=== PATIENT | male | born 1960 | race Caucasian/White ===

== ENCOUNTER 2016-07-28 09:14 | Day surgery (SDC) | payer BC ==
[2016-07-24 15:57] VITALS: BMI 21.1
[~2016-07-28 09:14] MED LIST: LACTATED RINGERS 1,000 ML IV SCH; LIDOCAINE 1% 20 ML VIAL (10MG/ML) FOR IV START INTRADERMA PRN
[2016-07-28 09:44] VITALS: TEMP 97.7
[2016-07-28] MEDS ORDERED: LIDOCAINE 1% 20 ML VIAL (10MG/ML) FOR IV START INTRADERMA ONE (09:50)
[2016-07-28] MEDS ORDERED: PROPOFOL 10 MG/ML 20 ML VIAL IV ONE (09:58)
--- NOTE | 2016-07-28 10:31 | P.PCN ---
Date of Procedure: 07/28/16 Procedure(s) Performed: Procedure: Total colonoscopy. Preoperative diagnosis: Intermittent rectal bleeding. Postoperative diagnosis: Low-grade internal hemorrhoids, not bleeding at the time of the exam, otherwise exam to the cecum within normal limits. Preparation: HalfLytely prep. Sedation: Was provided by anesthesia. Brief clinical history: The patient is a 56-year-old male who is referred for this evaluation because of recent episodes of fresh bleeding per rectum. There is no change in bowel habits or any significant abdominal symptoms or anemia. No family history of colon cancer. This would be his first colonoscopy.. Procedure: With the patient on his left lateral decubitus position and after informed consent and adequate sedation, the perianal area was inspected and it did not show any fissures or fistulas. There were no masses felt on digital rectal examination. The Olympus CFQ 160L video colonoscope was then inserted in the rectum in the usual fashion and advanced to the cecum. The mucosa appeared healthy. No polyps or tumors were seen or any obvious diverticular disease or other pathology. I retroflexed endoscope in the rectum before the endoscope was withdrawn. Low-grade internal hemorrhoids were noted but there was no bleeding. The patient tolerated the procedure well. Plan: Was reassured. Discussed dietary measures and local care for hemorrhoids. He will follow up with you as planned and I recommended repeat exam in 10 years.
[2016-07-28 10:52] VITALS: BP 107/70; PULSE 63; RESP 18
== END 2016-07-28 11:03 | disposition home or self-care (01) ==
LOC: ORWHC2ENDO 09:14
DX: K62.5 Hemorrhage of anus and rectum (principal); K64.8 Other hemorrhoids; J44.9 Chronic obstructive pulmonary disease, unspecified; J45.909 Unspecified asthma, uncomplicated; Z79.899 Other long term (current) drug therapy
CPT/HCPCS: 45378; J2704

== ENCOUNTER 2020-08-21 09:24 | Emergency (ER) | payer BC, OTHER ==
[2020-08-21 09:36] VITALS: BP 150/89; RESP 18; TEMP 97.9
--- NOTE | 2020-08-21 10:08 | ED ---
General Adult HPI - General Chief complaint: Upper Respiratory Infection Stated complaint: COVID +, SOB,Fever Time Seen by Provider: 08/21/20 09:39 Source: patient, RN notes reviewed Mode of arrival: ambulatory Limitations: no limitations - History of Present Illness Initial comments: Patient is a pleasant 60-year-old male presenting to the emergency department with concern regarding his symptoms of [place] virus. Patient has been having symptoms now for 2 weeks. Symptoms may be improving some. Patient has occasional cough with some mild shortness of breath. Patient does have history of asthma. Patient is having significant myalgias. No significant fatigue. No loss of taste or smell. No vomiting or diarrhea. Patient states his did r eceive monoclonal antibodies and he was wondering if he may be a candidate for that. - Related Data Home Medications Medication Instructions Recorded Confirmed Albuterol Inhaler (Mhu) [Ventolin 1 - 2 puff INHALATION Q6HR PRN 07/24/16 07/28/16 Hfa Inhaler] Ibuprofen [Motrin] 200 - 400 mg PO Q6HR PRN 07/24/16 07/28/16 Stomach Med 1 tab PO DAILY 07/24/16 Previous Rx's Medication Instructions Recorded Azithromycin [Zithromax Z-pack (6 250 mg PO DIRECTED #6 tab 08/21/20 tabs)] Allergies Allergy/AdvReac Type Severity Reaction Status Date / Time No Known Allergies Allergy Verified 08/21/20 09:36 Review of Systems ROS Statement: Those systems with pertinent positive or pertinent negative responses have been documented in the HPI. ROS Other: All systems not noted in ROS Statement are negative. Constitutional: Denies: chills Eyes: Denies: eye pain ENT: Denies: ear pain Respiratory: Reports: as per HPI, cough, dyspnea Cardiovascular: Denies: chest pain Endocrine: Denies: fatigue Gastrointestinal: Denies: abdominal pain Genitourinary: Denies: dysuria Musculoskeletal: Denies: back pain Skin: Denies: rash Neurological: Denies: weakness Past Medical History Past Medical History: Asthma Additional Past Medical History / Comment(s): blood in stools, intermittent abdominal pain History of Any Multi-Drug Resistant Organisms: None Reported Past Surgical History: Hernia Repair Past Anesthesia/Blood Transfusion Reactions: No Reported Reaction Additional Past Anesthesia/Blood Transfusion Reaction / Comment(s): no hx blood transfusion Past Psychological History: No Psychological Hx Reported Smoking Status: Never smoker Past Alcohol Use History: Daily Past Drug Use History: None Reported - Past Family History Mother Family Medical History: Cancer Additional Family Medical History / Comment(s): lung Father Family Medical History: No Reported History General Exam Limitations: no limitations General appearance: alert, in no apparent distress Head exam: Present: normocephalic Eye exam: Present: normal appearance Neck exam: Present: normal inspection Respiratory exam: Present: normal lung sounds bilaterally. Absent: respiratory distress, wheezes, accessory muscle use Cardiovascular Exam: Present: regular rate, normal rhythm GI/Abdominal exam: Present: soft. Absent: tenderness Extremities exam: Present: normal inspection Neurological exam: Present: alert Psychiatric exam: Present: normal affect, normal mood Skin exam: Present: normal color Course Vital Signs 08/21/20 09:34 Temperature 97.9 F Pulse Rate 67 Respiratory 18 Rate Blood Pressure 150/89 O2 Sat by Pulse 98 Oximetry Medical Decision Making - Medical Decision Making Patient reevaluated and updated. Questionable developing infiltrate in 2 weeks post onset of cold symptoms. Patient will be covered for possible early pneumonia with azithromycin. Patient advised to return if difficulty breathing or worsening symptoms. Patient is not a candidate for monoclonal antibody for steroids. - Radiology Data Radiology results: image reviewed (Chest x-ray does question developing infiltrate right lower lobe) Disposition Clinical Impression: COVID-19 Disposition: HOME SELF-CARE Condition: Stable Instructions (If sedation given, give patient instructions): Fever in Adults (ED), Pneumonia (ED) Additional Instructions: Please do follow-up with primary care physician in the next day or 2 for recheck. Return for difficulty breathing, fevers, worsening or changing symptoms or any other concerns. Zohf-lbi-urjcauj vitamin C, vitamin D, and zinc. Consider melatonin at nighttime. Prescription sent to [facility]. Use inhaler as needed. Prescriptions: Azithromycin [Zithromax Z-pack (6 tabs)] 250 mg PO DIRECTED #6 tab Is patient prescribed a controlled substance at d/c from ED?: No Referrals: Ok Cristina MD [Primary Care Provider] - 1-2 days Time of Disposition: 10:46
--- NOTE | 2020-08-21 10:39 | XR ---
EXAMINATION TYPE: XR chest 2V DATE OF EXAM: 08/21/2020 COMPARISON: Chest x-ray July 04, 2011. HISTORY: Dyspnea. Positive covid. TECHNIQUE: Frontal and lateral views of the chest are obtained. FINDINGS: There is new increased opacity right mid to lower lung hilar and infrahilar level. Backgro und chronic emphysematous change. Bibasilar linear scarring and/or atelectasis. The cardiac silhouett e size remains within normal limits. The osseous structures are intact. IMPRESSION: Chronic emphysematous change with bibasilar linear scarring and/or atelectasis and sugge stion of developing medial right lower lung acute infiltrate.
[2020-08-21 11:19] VITALS: PULSE 69
== END 2020-08-21 11:17 | disposition home or self-care (01) ==
LOC: EC 09:24
DX: U07.1 COVID-19 (principal); J45.909 Unspecified asthma, uncomplicated; Z79.1 Long term (current) use of non-steroidal anti-inflammatories (NSAID)
CPT/HCPCS: 71046; 99285

== ENCOUNTER → 2021-09-09 | Outpatient (CLI) | payer BC ==
--- NOTE | 2021-09-09 12:35 | XR ---
EXAMINATION TYPE: XR chest 2V DATE OF EXAM: 09/09/2021 COMPARISON: Chest x-ray 08/21/2020 HISTORY: R07.9 Left rib pain TECHNIQUE: Frontal and lateral views of the chest are obtained. FINDINGS: There are prominent lung volumes. There may be underlying COPD. Possible calcified granulom a right upper lobe. Biapical pleural thickening is present. Aorta is dense. There is flattening of he midiaphragms. Probable basilar scarring noted. There is thoracic spondylosis. There is no focal air s pace opacity, pleural effusion, or pneumothorax seen. The cardiac silhouette size is within normal l imits. The osseous structures are intact. IMPRESSION: No acute cardiopulmonary process. Bone scan may be of benefit.
== END | disposition home or self-care (01) ==
LOC: RADXRMAIN 10:04
PROVIDERS: ATTEND Internal Medicine
DX: R07.9 Chest pain, unspecified (principal); R07.81 Pleurodynia
CPT/HCPCS: 71046

== ENCOUNTER → 2022-08-29 | Outpatient (CLI) | payer BC ==
[2022-08-29 13:31] LABS: Appearance,Urine Clear (Clear); Bilirubin,Urine Negative (Negative); Blood,Urine Negative (Negative); Color,Urine Yellow (Yellow); Ketones,Urine Negative (Negative); Nitrite,Urine Negative (Negative); Urobilinogen,Urine 0.2 (0.2,1.0)
[2022-08-29 13:40] LABS: Basophils # (A) 0.09 X 10*3/uL (0.00-0.10); Basophils % (A) 1.5 %; Eosinophils # (A) 0.42 X 10*3/uL (0.04-0.35); Eosinophils % (A) 7.2 %; HCT 39.7 % (39.6-50.0); HGB 13.2 g/dL (13.0-17.0); Immature Grans, Automated 0.3 %; Lymphocytes # (A) 1.26 X 10*3/uL (0.90-5.00); Lymphocytes % (A) 21.5 %; MCH 32.5 pg (27.0-32.0); MCHC 33.2 g/dL (32.0-37.0); MCV 97.8 fL (80.0-97.0); Mean Platelet Volume 9.6 fL (9.5-12.2); Monocytes # (A) 0.54 X 10*3/uL (0.20-1.00); Monocytes % (A) 9.2 %; NRBC Per 100 WBC 0 /100 WBCS (0.0-0.0); Neutrophils # (A) 3.52 X 10*3/uL (1.80-7.70); Neutrophils % (A) 60.3 %; Platelet Count 285 X 10*3/uL (140-440); RBC 4.06 X 10*6/uL (4.40-5.60); RDW 13.6 % (11.5-14.5); WBC 5.85 X 10*3/uL (4.50-10.00)
[2022-08-29 13:57] LABS: ALT 21 U/L (10-49); AST 19 U/L (14-35); African American GFR (CKD) 104.3 (60.0-200.0); Albumin 4.4 g/dL (3.8-4.9); Albumin/Globulin Ratio 1.51 (1.60-3.17); Alkaline Phosphatase 57 U/L (41-126); BUN/Creat Ratio 12.05 Ratio (12.00-20.00); Blood Urea Nitrogen 11.1 mg/dL (9.0-27.0); Calcium 9.6 mg/dL (8.7-10.3); Carbon Dioxide 22.9 mmol/L (20.0-27.5); Chloride 101 mmol/L (96-109); Chol/HDL Ratio 3.69 Ratio; Globulin 2.9 g/dL (1.6-3.3); Glucose 97 mg/dL (70-110); LDL Cholesterol,Calculated 149.7 mg/dL (0.0-131.0); Sodium 135 mmol/L (135-145); Total Protein 7.4 g/dL (6.2-8.2); VLDL Calculation 19.38 mg/dL (5.00-40.00)
== END | disposition home or self-care (01) ==
LOC: LABWHC1 08:33
PROVIDERS: ATTEND Family Medicine
DX: Z00.01 Encounter for general adult medical examination with abnormal findings (principal); N40.0 Benign prostatic hyperplasia without lower urinary tract symptoms; R03.0 Elevated blood-pressure reading, without diagnosis of hypertension
CPT/HCPCS: 36415; 80053; 80061; 81003; 84153; 84439; 84443; 85025

== ENCOUNTER → 2022-12-14 | Outpatient (CLI) | payer BC ==
--- NOTE | 2022-12-14 20:51 | CTL ---
EXAMINATION TYPE: CT Low Dose Lung DATE OF EXAM ORDERED: 12/14/2022 HISTORY: 62-year-old male Z12.2, former smoker with 29 pack-year history. Lung cancer screening CT DLP: 87.[address] CTDI: 2.0 mGy Automated exposure control for dose reduction was used. SCREENING VISIT: Baseline COMPARISON: None TECHNIQUE: Low dose computed tomography scan was performed through the chest with coronal and sagitta l reconstructions. CT DIAGNOSTIC QUALITY: Satisfactory FINDINGS: Heart is normal size without effusion. Mild LAD coronary calcifications are present. Ectatic ascending aorta 3.9 cm. 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 No thoracic lymphadenopathy by CT size criteria. Moderate centrilobular emphysema. Subpleural reticular and mild groundglass changes in the lower lung s could represent fibrosis or interstitial pneumonitis such as DIP. Prominent biapical pleural parenchymal scarring. Areas of nodularity here on the right measure up to 7 mm on axial images 60 and 71. Nodularity measures up to 1 cm on axial image 48 at the left apex. 4 mm anterior right midlung pulmonary nodule, axial image 173. Calcified granuloma lateral right upper lobe, axial image 98 6 mm lateral left basilar pulmonary nodule, axial image 25. Otherwise, no consolidation or pleural effusion. Tiny hiatal hernia. Visualized abdomen shows no gross abnormalities by noncontrast low-dose technique . Bones: Mild degenerative disc disease mid to lower thoracic spine. IMPRESSION: 1. LungRADS 4A, suspicious. Scattered bilateral pulmonary nodules. The largest area of nodularity nader sures up to 1 cm. However, these areas may relate to pleural parenchymal scarring. Reassess at a 3 mo nth follow-up. 2. COPD with moderate emphysema. Interstitial changes in the lower lungs could reflect fibrosis, lunchroom monitor daniel aspiration, or interstitial pneumonitis such as DIP. CT LUNG RAD AND CT CHEST RECOMMENDATION: Lung-Rad 4A Suspicious: Follow-up 3 month LDCT or PET/CT may be used when there is a > 8 mm solid component. S Modifier (other clinically significant findings): None
== END | disposition home or self-care (01) ==
LOC: RADCTMAIN 16:26
PROVIDERS: ATTEND Family Medicine
DX: Z12.2 Encounter for screening for malignant neoplasm of respiratory organs (principal); J43.2 Centrilobular emphysema; J84.10 Pulmonary fibrosis, unspecified; R91.8 Other nonspecific abnormal finding of lung field; Z87.891 Personal history of nicotine dependence
CPT/HCPCS: 71271

== ENCOUNTER → 2024-07-12 | Outpatient (CLI) | payer BC ==
--- NOTE | 2024-07-12 18:15 | CTL ---
EXAMINATION TYPE: CT Low Dose Lung DATE OF EXAM: 07/12/2024 5:48 PM COMPARISON: 07/12/2023. CLINICAL INDICATION: Male, 64 years old with history of Z12.2 entr scrn malig farzana, Z87.891 hist nicot depn; personal tobacco use, history of tobacco use. TECHNIQUE: Multiple axial non-contrast scans were obtained from approximately the lung apices through the upper abdomen. Coronal and sagittal reformatted images were obtained. Low dose technique was uti lized. MIP were created on a separate workstation and submitted for review. CT DLP: 70.3 mGycm, Automated exposure control for dose reduction was used. CT Contrast: Contrast used: None Oral contrast used: None FINDINGS: Lack of intravenous contrast and low dose technique limits the evaluation of the vascular and soft ti ssue structures. LUNGS: No evidence of pulmonary fibrosis. No evidence of focal consolidation, pneumothorax or pleural effusion. Centrilobular emphysema changes. Nodules: RUL: 3 mm calcified granuloma series 5 image 18, stable.. RML: None. RLL: None. LORENE: None. LLL: None. AIRWAY: Patent and unremarkable. HEART: Cardiomegaly is demonstrated. Mild coronary artery calcifications present. MEDIASTINUM: No gross evidence of adenopathy. VASCULATURE: No aortic aneurysm. MUSCULOSKELETAL: No acute osseous abnormalities SOFT TISSUES/LYMPH NODES: Unremarkable. LOWER NECK: No significant findings. UPPER ABDOMEN: No significant findings. IMPRESSION: 1. No clinically significant pulmonary nodules. 2. Mild emphysema. CT LUNG RAD AND CT CHEST RECOMMENDATION: Lung-Rad 2 Benign Appearance or Behavior: Continue annual sc reening with LDCT in 12 months. S Modifier (other clinically significant findings): None Recommend smoking cessation (if current smoker), or continuation of smoking cessation (if prior smoke r). Annual screening for lung cancer with low-dose computed tomography is recommended in adults ages 55 to 77 years who have a 30 pack-year smoking history and currently smoke or have quit within the pa st 15 years. Screening should be discontinued once a person has not smoked for 15 years or develops a health problem that substantially limits life expectancy or the ability or willingness to have curat samina lung surgery. Lung rads 2021 [email or web address] [facility], , 07/12/2024 6:13 PM
== END | disposition home or self-care (01) ==
LOC: RADCTMAIN 17:03
PROVIDERS: ATTEND Internal Medicine Critical Care Medicine
DX: Z12.2 Encounter for screening for malignant neoplasm of respiratory organs (principal); J43.2 Centrilobular emphysema; Z87.891 Personal history of nicotine dependence
CPT/HCPCS: 71271

== ENCOUNTER → 2024-09-12 | Outpatient (CLI) | payer BC ==
--- NOTE | 2024-09-12 16:34 | CT ---
EXAMINATION TYPE: CT abdomen pelvis w con DATE OF EXAM: 09/12/2024 COMPARISON: None CLINICAL INDICATION: Male, 64 years old with history of R10.31 RLQ PAIN; PHH, LOWER ABDOMINAL PAIN X 4 MONTHS, HERNIA SX 25+ YRS AGO TECHNIQUE: Performed with Oral Contrast and with IV Contrast, patient injected with 100 ml mL of Isovue 300. CT DLP: 526.[address] CTDI: mGy Automated exposure control for dose reduction was used. FINDINGS: The lung bases are clear. The gallbladder is normal without distention, wall thickening, pericholecystic fluid or gallstones. T here is no biliary ductal dilatation. There is no focal mass or organomegaly involving the liver, pancreas, spleen or adrenal glands. There is no solid renal mass or hydronephrosis and there is homogeneous contrast enhancement of the r enal parenchyma. The caliber the abdominal aorta is normal is no retroperitoneal adenopathy or hemorr mariann. The bowel loops are normal in caliber and there is no evidence of dilatation or obstruction. No infla mmatory changes are identified in the bowel wall or mesentery. The appendix is visualized and is norm al. There is no free intraperitoneal air or fluid. No pelvic mass, free fluid, abscess or adenopathy. The osseous structures and soft tissues are intact. IMPRESSION: No significant abnormality seen. [facility], , 09/12/2024 4:31 PM
== END | disposition home or self-care (01) ==
LOC: RADCTMAIN 14:18
PROVIDERS: ATTEND Family Medicine
DX: R10.31 Right lower quadrant pain (principal)
CPT/HCPCS: 74177; Q9967